=== PATIENT | female | born 1995 | race Caucasian/White ===

== ENCOUNTER → 2017-10-11 15:44 | Outpatient (CLI) | payer OTHER ==
[2012-05-03 09:13] VITALS: BMI 23.7
[2017-10-11 16:20] LABS: BASOPHILS 0.3 % (0-2); EOSINOPHILS 0.5 % (0-7); HEMATOCRIT 40.2 % (36.0-48.0); HEMOGLOBIN 13.5 g/dL (12-16); IMMATURE GRANULOCYTES 0.1 % (0-5); LYMPHOCYTES 13.1 % (15-50); MCH 30.1 pg (26.0-34.0); MCHC 33.6 g/dL (31.0-37.0); MCV 89.7 fL (80.0-100.0); MEAN PLATELET VOLUME 11.4 fL (7.4-10.4); MONOCYTES 7.1 % (2-11); NEUTROPHILS 78.9 % (40-80); RBC 4.48 10x6/uL (4.00-5.40); RDW 12.5 % (11.5-14.5); WBC 9.7 10x3/uL (4.8-10.8)
[2017-10-11 16:24] LABS: PLATELET COUNT 186 10x3/uL (130-400)
[2017-10-11 17:30] LABS: ANION GAP 15.1 mmol/L (8-16); BILIRUBIN - TOTAL 0.23 mg/dL (0.2-1.3); CALCIUM 9.2 mg/dL (8.5-10.1); CARBON DIOXIDE 26.6 mmol/L (21.0-32.0); POTASSIUM - SERUM 3.7 mmol/L (3.5-5.1); PROTEIN - SERUM 7.5 g/dL (6.4-8.2)
[2017-10-11 17:39] LABS: ERYTHROCYTE SEDIMENTATION RATE 5 mm/hr (0-20)
== END | disposition home or self-care (01) ==
LOC: D.LAB 15:44
PROVIDERS: Internal Medicine Gastroenterology
DX: R10.30 Lower abdominal pain, unspecified (principal); R11.0 Nausea; R19.7 Diarrhea, unspecified; K92.1 Melena